=== PATIENT | male | born 1970 | race Hispanic/Latino ===

== ENCOUNTER 2022-07-13 17:45 | Emergency (ER) | payer OTHER ==
[~2022-07-13] VITALS: Ht 167.6 cm; Wt 102.1 kg
[2022-07-13] MEDS ORDERED: IOHEXOL 350 MG/ML 100ML INFUS..BTL IV ONE (18:14)
[2022-07-13] MEDS ORDERED: MORPHINE 4 MG SYG IVP ONE (19:30)
[2022-07-13] MEDS ORDERED: ONDANSETRON 4MG INJ IVP ONE (19:30)
[2022-07-13] MEDS ORDERED: KETOROLAC 15MG/ML VIAL (15MG/ML) IV ONE (20:00)
[2022-07-13 21:44] VITALS: BP 127/71
[2022-07-13] MEDS ORDERED: METH-662 PO (21:48)
[2022-07-13] MEDS ORDERED: DICL35CA3 PO (21:48)
== END 2022-07-13 22:02 | disposition home or self-care (01) ==
LOC: EDH 17:45
DX: M54.50 Low back pain, unspecified (principal); G89.11 Acute pain due to trauma; W11.XXXA Fall on and from ladder, initial encounter; Y93.89 Activity, other specified; Y92.89 Other specified places as the place of occurrence of the external cause; Y99.8 Other external cause status
CPT/HCPCS: 99285; 70450; 96374; 96375; 72125; 71260; 74177; J2405; J2270; J1885; Q9967